=== PATIENT | female | born 1960 | race Caucasian/White ===

== ENCOUNTER 2020-02-15 10:53 | Emergency (ER) | payer OTHER, SELFPAY ==
[2020-02-15 11:00] VITALS: BP 170/85; PULSE 80; RESP 16; TEMP 36.5; O2SAT 98
--- NOTE | 2020-02-15 11:15 | DI.RAD_ITS ---
EXAM: XR SHOULDER LT COMPLETE 2+V CLINICAL HISTORY: fall/injury TECHNIQUE: COMPARISON: No exams were available for comparison FINDINGS: Five views were obtained. There is question of cortical deformity of the humeral head anteriorly par ticularly seen on the axillary view. Additionally, there is a question of a small bony fragment vers us calcification associated with the anterior inferior humeral head. Glenoid is unremarkable as visualized. Rotator cuff calcification noted superiorly. IMPRESSION: Suspect anterior humeral head fracture. Please see accompanying CT report.
--- NOTE | 2020-02-15 11:45 | DI.CT_ITS ---
EXAM: CT UPPER EXTREMITY LT WO CLINICAL HISTORY: injury, question humeral head fx on x ray TECHNIQUE: COMPARISON: No exams were available for comparison FINDINGS: CT examination of the left shoulder was performed utilizing multi slice acquisition multiplanar recon struction. There is fracture of the anterior inferior aspect of the humeral head with 2 displaced fr acture fragments, these measure about 17 x 8 millimeters and 15 x 7 millimeters in diameter respectiv jordan, maximal displacement is about 2 cm for the more inferiorly located fracture fragment. Remainder of the humeral head appears intact. No scapular fracture seen. Superior rotator cuff calcification noted as seen on plain films. IMPRESSION: Moderately displaced fracture of anterior inferior aspect of humeral head as described above. No gle noid involvement.
--- NOTE | 2020-02-15 11:53 | W.ED.GENAD ---
Discharge Plan Disposition Patient Disposition: HOME Condition: Stable Discharge Details Chief Complaint: Orthopedic Clinical Impression: Fracture of head of humerus Primary Care Provider: Lindsay Pollack ED Provider: Lucian Lam Home Meds and New Rx's Prescriptions: No Action omeprazole 20 mg Capsule,Delayed Release(Dr/Ec) 20 mg PO DAILY RF: 0 Discharge Instructions Instructions: Shoulder Pain (ED) Additional Instructions: Wear sling until reevaluation with orthopedics. [id number] Tylenol and/or Motrin as directed for discomfort. Cool compresses every 2 hours for 20 minutes. Please watch for new or worsening symptoms and return to the ER for any concerns. I recommend getting Dr. Dior's office a call tomorrow for prompt outpatient reevaluation the next 5-7 days. Referrals: Mohit Dior MD [ [facility] STAFF PHYSICIAN] - Medical Decision Making 59-year-old female otherwise healthy presents with left shoulder discomfort status post mechanical fall. She appears well, nontoxic. Neuro, vascular, tendon intact. Discussed analgesia, patient declines any at this time. Will obtain x-ray and reassess Discussed left shoulder x-ray with radiology, question of anterior fracture, recommend CT CT imaging obtained of left shoulder without contrast. Moderately displaced anterior-inferior humeral head fracture. Discussed CT and x-ray findings with patient. Sling applied. Patient understands the importance of orthopedic follow-up and she was placed on the orthopedic follow-up list. Patient does not want any pain medication upon discharge or prescription. She appears well, nontoxic, neuro, vascular, tendon intact. No additional questions or concerns upon discharge. Medical Records Medical records reviewed: Yes I reviewed the patient's medical records. Imaging Data Radiologic Study: Attestation: I personally reviewed and interpreted this imaging study as follows: Imaging: X-Ray My impression: Question anterior humeral head fracture, discussed with radiology. Recommend CT Radiologic Study #2: Attestation: I personally reviewed and interpreted this imaging study as follows: Imaging: CT Scan Radiologist's impression: There is a moderately displaced anterior-inferior humeral head fracture, CT no contrast left shoulder HPI General Mode of arrival: ambulatory. Date/Time Provider Initiated Documentation: 02/15/20 11:10. Limitations to Documentation: no limitations. Information obtained by: patient. HPI Narrative: This is a 59-year-old female who is right-hand dominant, presenting with a left shoulder injury that occurred at work around 930 this morning. She reports a mechanical trip and fall, her left arm was part way out breaking her fall. She reports no other injury, striking her head, numbness, tingling, weakness. She is not anticoagulated. She reports the pain is moderate at rest, severe with attempting to move her shoulder. She reports that she did dislocate 1 of her shoulders nearly 40 years ago but she cannot recall which shoulder that would have been. She denies any injuries symptoms prior to the fall Related Data Home Medications Medication Instructions Recorded Confirmed omeprazole 20 mg PO DAILY 02/15/20 02/15/20 Allergies Allergy/AdvReac Type Severity Reaction Status Date / Time No Known Allergies Allergy Unverified 02/15/20 11:04 General Stated Complaint: Orthopedic NADINE: 4 Review of Systems Constitutional Constitutional: Denies headache(s) and Denies weakness ENT Ears, Nose, Mouth, and Throat: Denies headache(s) Cardiovascular Cardiovascular: Denies chest pain and Denies dyspnea Respiratory Respiratory: Denies cough and Denies dyspnea Gastrointestinal Gastrointestinal: Denies nausea and Denies vomiting Musculoskeletal Musculoskeletal: Denies numbness and Denies tingling Integumentary/Breasts Skin/Breast: Denies rash Neurologic Neurologic: Denies headache(s), Denies numbness, Denies tingling and Denies weakness [facility] Medical History Dysphagia (Acute) GERD (gastroesophageal reflux disease) (Chronic) Hyperlipidemia (Acute) Lesion of skin of nose (Acute) Obesity (Chronic) Stress incontinence (Acute) Social History Smoking/Tobacco Use Status: Never Alcohol Intake: never Substance use type: does not use Exam Const General: cooperative, healthy appearing, comfortable and no acute distress Orientation: alert, awake and oriented x3 HENMT Head: normal to inspection, normocephalic and atraumatic General nose exam: external nose normal Face and sinus: normal facial exam Mouth: moist mucous membranes Eyes Conjunctivae: conjunctivae normal Neck Neck: normal visual inspection, full ROM, trachea midline, supple and nontender Resp Effort & Inspection: normal respiratory effort and able to speak in complete sentences Auscultation: clear to auscultation bilaterally Cardio Rate: regular rate Rhythm: regular rhythm Back/Spine/Pelvis Back: No back tenderness Skin General skin exam: no rashes or lesions noted Neuro General: patient alert, patient awake, patient oriented x3, moves all extremities and no focal motor deficits Cognition: normal cognition Speech: speech normal Gait: normal gait Motor: muscle tone normal throughout Sensory Exam: no sensory deficits noted Extrem Left upper extremity: normal to inspection and shoulder/upper arm Details: inspection abnormal, tenderness Location: of the proximal humerus, axillary nerve sensory function normal and abnormal ROM Details: held in an abnormal fashion Details: in ADduction, pain with active ROM, pain with passive ROM and with range as follows (Decreased abduction, flexion, extension); ROM limited Psych Appearance: grossly normal Mental Status: mental status grossly normal Course Vital Signs Vital signs: Vital Signs Temperature 36.5 C 02/15/20 11:00 Pulse 80 02/15/20 11:00 Respiratory Rate 16 02/15/20 11:00 Blood Pressure 170/85 H 02/15/20 11:00 Pulse Oximetry 98 02/15/20 11:00 Temperature 36.5 C 02/15/20 11:00 Temperature Source Skin 02/15/20 11:00 Pulse 80 02/15/20 11:00 Respiratory Rate 16 02/15/20 11:00 Respiratory Effort Non-Labored 02/15/20 11:00 Blood Pressure 170/85 H 02/15/20 11:00 Blood Pressure Position Sitting 02/15/20 11:00 Pulse Oximetry 98 02/15/20 11:00 Oxygen Delivery Method Room Air 02/15/20 11:00 Oxygen Flow Rate 0 02/15/20 11:00 Pain Level 8 02/15/20 11:05
== END 2020-02-15 12:50 | disposition home or self-care (01) ==
LOC: ER 12:59
PROVIDERS: Emergency Provider Physician Assistant; PCP Nurse Practitioner Family
DX: S42.292A Other displaced fracture of upper end of left humerus, initial encounter for closed fracture (principal); W18.09XA Striking against other object with subsequent fall, initial encounter; Y99.0 Civilian activity done for income or pay
CPT/HCPCS: 23600; 99284; 73030; 73200; 99282; L3650

== ENCOUNTER 2020-03-10 00:54 | Outpatient (CLI) | payer OTHER, SELFPAY ==
--- NOTE | 2020-03-10 09:30 | DI.MRI_ITS ---
EXAM: MR UPPER JOINT LT WO CLINICAL HISTORY: Subscapularis avulsion fracture, rotator cuff tear,fx head of humerus,M75.102,S42. 293A TECHNIQUE: Multiplanar multisequence MRI was performed. COMPARISON: CT CT UPPER EXTREMITY LT WO from 02/15/[address] UPPER EXTREMITY LT WO from 02/15/2020 FINDINGS: MR examination of the shoulder was performed according to the usual protocol. The patient had acute fracture of the anterior humeral head in the subscapularis attachment region on February 14. Bones: There are moderate hypertrophic degenerative changes of the acromioclavicular joint with mild supraspinatus superior surface impingement. There is significant marrow edema of humeral head which extends anteriorly to posteriorly, there are avulsed fracture fragments of the humeral head anteriorly at the subscapularis attachment region, the se are poorly defined by MR criteria on the current examination as they are of intermediate signal in tensity. Comparison with CT of 02/15/2020 shows probable mild persistent displacement of fracture fr agments anteriorly, however a repeat CT would be more accurate in determining the exact location and orientation of the fracture fragments anteriorly. Rotator cuff: There is partial and full-thickness tearing of the subscapularis tendon, most prominent in the distal portion of the tendon. There is intact continuous tendon at the superior aspect of th e subscapularis. Additionally, inferior portions of the tendon appear to be attached to a presumed a nterior fracture fragment which probably remains partially healed at this time. Supraspinatus, infraspinatus, and teres minor tendons appear well maintained, no significant tearing. Mild tendinosis or bruising of supraspinatus noted over the superior convexity of the humeral head. Biceps tendon: Biceps tendon and anchor appear intact and normally located in the bicipital groove. Glenoid labrum: Glenoid labrum appears mildly effaced but with no discrete tear. IMPRESSION: Complex anterior injury with comminuted anterior humeral head fracture and associated subscapularis t ear. Significant portions of the subscapularis remain attached to humeral head. Additionally porti ons of sub scapularis remains attached to anterior humeral fracture fragments, probably unhealed at t his time. DATA REPOSITORY:
== END 2020-03-10 01:14 ==
PROVIDERS: PCP Nurse Practitioner Family; Visit Provider Orthopaedic Surgery
DX: M75.102 Unspecified rotator cuff tear or rupture of left shoulder, not specified as traumatic (principal); S42.262D Displaced fracture of lesser tuberosity of left humerus, subsequent encounter for fracture with routine healing; M19.012 Primary osteoarthritis, left shoulder
CPT/HCPCS: 73221

== ENCOUNTER 2020-03-15 08:58 | Outpatient (CLI) | payer BC, SELFPAY ==
[2020-03-16 19:09] LABS: COVID-19 RT-PCR UVMMC Result Negative (Negative)
== END 2020-03-15 09:18 ==
PROVIDERS: PCP Nurse Practitioner Family; Visit Provider Student in an Organized Health Care Education/Training Program
DX: Z11.59 Encounter for screening for other viral diseases (principal); Z01.818 Encounter for other preprocedural examination
CPT/HCPCS: U0003

== ENCOUNTER 2020-03-18 08:13 | Day surgery (SDC) | payer OTHER, SELFPAY ==
[2020-03-18] VITALS (7 sets, daily range): BP systolic 122–147; BP diastolic 67–85; PULSE 66–75; RESP 13–18; TEMP 36.2–36.5; O2SAT 95–100
[2020-03-18] MEDS: Lactated Ringers 1,000 ML 100 ML IV ×2 (09:00→15:07)
--- NOTE | 2020-03-18 10:12 | PDOC.DSDIS_ITS ---
Discharge Plan Disposition Patient Disposition: HOME Condition: Stable Discharge Details Reason For Visit: Left shoulder surgery Attending Provider: Felipe Townsend Primary Care Provider: Lindsay Pollack Home Meds and New Rx's Prescriptions: New naproxen 250 mg tablet 250 - 500 mg PO BID PRN (Reason: Moderate pain or swelling) Qty: 60 RF: 0 aspirin 81 mg tablet,delayed release (DR/EC) 81 mg PO DAILY 14 Days Qty: 14 RF: 0 oxycodone 5 mg tablet 5 - 10 mg PO Q4H PRN (Reason: moderate to severe pain) Qty: 22 RF: 0 Continued omeprazole 20 mg Capsule,Delayed Release(Dr/Ec) 20 mg PO DAILY RF: 0 Discontinued alprazolam 0.5 mg tablet 0.5 mg PO ONCE PRN (Reason: Claustrophobia) Qty: 2 RF: 0 Discharge Instructions Additional Instructions: Surgery: Shoulder arthroscopy with open rotator cuff repair and biceps tenodesis Activity: You should keep your arm at your side in a neutral position at all times except for physical therapy. Do not try to lift or raise your arm using your own muscles. You should use the sling whenever you are out of the house. You may have to adjust the abduction pillow or remove it for comfort. At home it is best to remove the sling and rest the arm on a pillow at your side or support the operative side with your other hand. You may allow the arm to dangle at your side. A physical therapy prescription will be provided separately today. Prescriptions: Aspirin 81 mg take 1 daily to prevent a blood clot for 2 weeks Naproxen 250 mg take 1-2 every 12 hours with a meal as needed for moderate pain Oxycodone 5 mg take 1-2 every 4-6 hours as needed for severe pain You may use [id number] Tylenol (acetaminophen) as needed for mild pain. These pain medications may be taken all at once or in different combinations as needed. Also, recommend Colace (docusate) as a stool softener as surgery and pain medicine cause constipation. Dressings: Leave dressing in place until follow up. Please keep clean and dry. Follow-up: 10-[address] Townsend Please call the office during business hours with any questions or concerns. Let us know right away if you develop any redness, drainage, fevers, chest pain, or trouble breathing. Do not drink alcohol or drive for at least 24 hours after anesthesia. Stand Alone Forms: Anes.Nerve Block Instructions, Brigitte Buckley ([facility]) Referrals: Felipe Townsend MD [ [facility] STAFF PHYSICIAN] - Discharge Orders Discharge Orders: Discharge Order (Routine); Ordered 03/18/20 Ordered By: Felipe Townsend DS: Diagnosis Discharge Diagnosis (1) Left rotator cuff tear: Status: Acute (2) Tendinitis of long head of biceps brachii of left shoulder: Status: Acute (3) Calcific tendonitis of left shoulder: Status: Acute (4) Fracture of head of humerus: Status: Inactive (5) Proximal humeral fracture: Status: Acute
--- NOTE | 2020-03-18 10:20 | ROE_ITS ---
Date of service: 03/18/20 Time of Service: 12:20 Operative Note Operative Note DATE OF PROCEDURE: 03/18/20 PRE-OP DIAGNOSIS: Left: 1. Rotator cuff tear: Subscapularis lesser tuberosity avulsion fracture 2. LHB tendinopathy 3. Calcific tendinitis: Supraspinatus POST-OP DIAGNOSIS: same PROCEDURE: Left: 1. Open rotator cuff repair, CPT# 80127. This involved repair of the subscapularis using anchors and sutures to reattach the rotator cuff avulsion fracture back to the footprint of the lesser tuberosity. 2. Open biceps tenodesis, CPT# 36191. This involved reattaching the long head of the biceps tendon to the proximal humerus in the supra-pectoral area of the bicipital groove at the correct tension. 3. Arthroscopic extensive debridement, CPT# 69387. This involved using arthroscopic hand instruments, power instruments, and radiofrequency instruments to release to release the long head of the biceps tendon, adhesions from the anterior capsule and MGHL to the subscapularis, and debride areas of synovitis, scar tissue, and prepare lesser tuberosity footprint the glenohumeral joint anteriorly 4. Subacromial decompression, CPT# 31245. This involved using arthroscopic power instruments and a radiofrequency wand to complete a bursectomy and debride soft tissue from the undersurface of the acromion. The assistant director of residence life was medically required in order to help assist in techniques abo ve, which require positioning the arm, holding the arthroscope, and manipulating 2 to 4 instruments and sutures at the same time. This cannot be done without the help of an experienced assistant director of residence life. SURGEON: Felipe Townsend COMPENSATION CONSULTING MANAGER: Kostas hCávez ANESTHESIA: GETA, regional and local ESTIMATED BLOOD LOSS: 200 PATHOLOGY: none sent COMPLICATIONS: None Patient was transported to: PACU Patient's condition: stable Implants: Arthrex: 4.75mm SwiveLocks x 2 and 5.5mm SwiveLock x 1 Indications: The patient was diagnosed with the above conditions and appropriately indicated for surgical intervention. Please see complete medical record for details. Findings: Exam under anesthesia: Full symmetrical range of motion without forcing external rotation. No instability. Glenohumeral joint: Moderate scarring about a retracted nearly full-thickness subscapularis avulsion fracture. Intact uppermost 10% subscapularis tendon. Long of the biceps injection inflammation. Intact supraspinatus infraspinatus. Intact glenoid humeral head cartilage surfaces. Significantly soft bone about the lesser tuberosity fracture bed unable to support suture anchor fixation. Subacromial space: Moderate bursitis. Minimal subacromial bone spur. No bursal rotator cuff tear. No visible calcific deposition. Procedure Description: In the operating room, general anesthesia was induced. Bilateral shoulders were examined. The patient was positioned in the beachchair position. All bony prominences were well-padded. Preoperative antibiotics were administered. The shoulder was prepped and draped in the usual sterile fashion. The correct patient, procedure, and side of the procedure were all verified prior to incision. Starting through the posterior portal a standard complete diagnostic arthroscopy was performed of the glenohumeral joint including inspection of the long head of the biceps, anterior and superior labrum, subscapularis tendon, supraspinatus and infraspinatus tendons, and axillary recess. The glenoid and humeral head cartilage as well as the posterior labrum were inspected as well. Significant findings and interventions noted above. The subscapularis was nearly completely avulsed from the lesser tuberosity and retracted medially. The uppermost border of the subscapularis remained intact near the biceps sling. The avulsion fracture contained a significant approximately 2 cm x 2 cm joint fracture fragments. It was retracted to the level of the glenoid. The 70 degree arthroscope was brought in posteriorly. A slightly lower anterior portal was established under direct visualization using a spinal needle for localization to access the inferior and middle lesser tuberosity fracture bed. A rigid cannula was inserted. A more anterior superior lateral anterior portal was then established under direct visualization with a spinal needle localizing to the superior margin of the subscapularis. Rigid cannula was also inserted here. The biceps tendon was provisionally prepared for arthroscopic tenodesis using the Loop N Tack method with a SutureTape FiberLink cinched around and through the tendon. The biceps was tenotomized from the labrum and suture brought out an accessory stab portal superior anterior laterally. The lesser tuberosity footprint was prepared using hand and power instruments for bone to bone healing removing scar tissue. The avulsion fracture and retracted tendon was freed anteriorly and posteriorly until adequate mobility. A rigid cannula was inserted anteriorly. The arm was adjusted between flexion and internal rotation and neutral using a 2 anterior portal technique, a suture lasso was used to pass a fiber tape through the inferior subscapularis medial to the bone avulsion fragment. This stitch was used for traction and passing of FiberLink more centrally in the subscapularis tendon relative to the avulsion fragment. The scorpion suture passer was used to place 2 additional fiber link sutures in the lateral and superior aspects of the scapularis. These were used as traction to help reduce the tendon avulsion fracture over its fracture bed. The tap was used to localize placement of the first 4.75 mm swivel lock containing the inferior most fiber tape and link working inferiorly and laterally in the lesser tuberosity fracture footprint. The punch went quite easily into the bone with minimal effort. The suture anchor was placed and then tested and easily pulled out with minimal resistance. The punch was used to confirm appropriate trajectory and depth. The anchor was brought back in and simply fell into the hole. Decision was made to switch attempted 5.5 mm swivel lock in its place. This was appropriately placed, sutures tensioned, seemed to have better fixation, and tested provisionally held in place. The inferior most avulsion fracture had been reduced. Due to the tenuous soft bone the decision was made to proceed with an additional anchor more superiorly as opposed to 3 initially planned medial row anchors. The punch was used to localize placement for an anchor superiorly and laterally in the fracture avulsion bed. This punch had some bony resistance so decision was made to try another 4.75 mm swivel lock, which was loaded with the superior FiberTape and 2 fiber links as well as the sutures for the biceps tenodesis and brought down with the sutures appropriately tension. Given the tenuous fixation of the previous screw, I tested this screw with the inner sutures. It did not pull out but it did wiggle slightly. I proceeded to inspect the repair through full internal and external rotation. I did not like what looked to be movement of this suture anchor in its socket with stress. Using graspers I tested it bone fixation and deemed to be inadequate. I was able to pull the screw back out of the socket. After carefully removing the entire SwiveLock and eyelet from the shoulder I decided to test the previously placed more inferior anchor. Viewing through the lower anterior portal with a 30 degree scope I watched this suture anchor again taken the arm through internal/external rotation. I could see similar motion of the screw suture anchor in its socket, which did not feel was adequate fixation strength. The decision was made to convert to an open subscapularis repair through a deltopectoral approach, which had been discussed at length with the patient beforehand as a likely possibility given the injury pattern. Prior to completing the arthroscopy portion of the case, starting through the posterior portal, the arthroscope was directed into the subacromial space. Superior anterolateral portal was redirected in the subacromial space. A combination of power instruments and a radiofrequency ablator were used to debride bursitis anteriorly, posteriorly, and laterally as well as expose a relatively smooth undersurface of the acromion. The coracoacromial ligament was not released. The small calcific deposition of the supraspinatus was not identified. Decision was made to omit any debridement or opening of the supraspinatus to debride this lesion as it had been only mildly symptomatic and unrelated to her acute injury that brought her to surgery today. The shoulder w as drained of arthroscopic fluid. Previously placed rotator cuff repair sutures, the biceps tenodesis suture, and that for suture anchor were maintained in place for later localization. The shortened version of the standard deltopectoral interval was used to approach the anterior shoulder extending from the superior anterior lateral portal distally down towards the central arm. Combination of sharp and blunt dissection was used to identify the cephalic vein centrally in the incision. It seemed to want to go laterally so in this case it was freed up from its medial attachments and pectoralis muscle and carefully retracted laterally with the deltoid. Blunt dissection and abduction was used to relax the deltoid muscle in place a brown retractor. Kolbel self retractor was placed more centrally in the incision. Scar tissue was removed using a rondure. The lesser tuberosity fracture bed was easily identified and the margins debrided of fibrous tissue. The remaining suture anchor was easily removed using a rondure indicating inadequate fixation. The sutures were maintained for traction on the inferior fracture fragment. The remainder of the sutures were brought through and out the open incision to help identify anatomy. The rotator interval and long head of the biceps tendon was identified. The biceps tendon sheath was opened and biceps tendon brought out the wound at the superior margin of the pectoralis major tendon. It was reprepped using a suture tape and amputating excess so as to have the appropriate tension when fixated at this location. Blunt dissection was used to confirm appropriate mobility of a now more clearly visible large lesser tuberosity avulsion subscapularis fracture. The upper margin of the subscapularis was still confirmed to be attached to the superior most lesser tuberosity. A suture passer was used to place a fiber tape in a horizontal mattress fashion medial to the avulsion fragment. A free needle was used to pass a suture tape FiberLink through the bone fragment centrally relative to the horizontal mattress tape stitch. These were tagged and this process was repeated more centrally. The previously arthroscopically placed FiberLink's most superiorly were used to main traction on the superior margin of the injury, the FiberTape removed and then replaced in a similar horizontal mattress fashion in the stitches snapped together. The initially planned double row transosseous equivalent repair did not seem possible at this time. The bone fracture bed contained soft bone as evidenced by prior soft tissue anchor pullout. The holes from these anchors were soft and enlarged. Instead, a single row repair draping the ensnared subscapularis avulsion fragments over the lesser tuberosity fracture bed with fixation in the typically good bone and the bicipital groove was decided to be done. Starting inferiorly the punch had good bone quality and the inferior tapes and link as well as biceps tendon suture tape were brought down -the biceps tendon and rotator cuff sutures and brought through an opposite direction to the eyelets they could be appropriately tensioned separately -and a 4.75 mm swivel lock anchor was well fixated. FiberWire preloaded on the suture anchor was brought about the medial and lateral sides of long head of the biceps tendon and a knot tied compressing the tendon down over the suture anchor and bone for optimal healing. This suture anchor repair of the biceps and subscapularis was tested and found to be strong. This was repeated for the middle tape and link to another 4.5 mm swivel lock placed at the appropriate level in the bicipital groove. The punch had excellent bone resistance and this anchor had good purchase. The superiormost sutures were provisionally brought over laterally. The bone in this area at the top of the bicipital groove did not have nearly the same resistance to the punch but it was thought to be enough. The superiormost tape as well as the arthroscopically placed 2 Links were brought through the eyelet appropriately tensioned and the screw driven into the hole. The fixation was tested and found to be borderline. The screw did not pull out but was not nearly as strong as the previous 2. When the arm was brought through internal to full external rotation it seemed to exhibit some micromotion. It was unscrewed partially and then removed with it eyelet using a rondure. The punch was used to confirm correct trajectory and depth, and a final 5.5 mm swivel lock was inserted containing the same sutures tensioned in its place. The suture anchor had greatly improved purchase. Suture anchor as well as the overall repair was inspected tested and the arm brought once again through full external rotation demonstrating no restricted motion due to the repair and secure fixation of the tendon and anchor to bone. There was excellent reduction of the entire left scapularis avulsion to the lesser tuberosity. The wound was copiously irrigated normal saline. Considering patient obesity and the duration of the case, 1 g of vancomycin powder was distributed deeply about the wound. The deltopectoral interval was allowed to close itself. The cephalic vein was inspected and remained intact. Subcutaneous tissue was closed using 2-0 Monocryl in a buried interrupted fashion. The skin was closed using 3-0 Monocryl in a running subcuticular fashion. The portal sites were closed using 3-0 Monocryl in a buried portal fashion. The anterior incision, stab portal, and other anterior portal were covered in skin glue. The posterior portal was covered with Steri-Strips over Mastisol followed by Xeroform, dry 4 x 4 gauze, and Tegaderm. The anterior incisions were covered with a silver impregnated Band-Aid secured with Mastisol about the skin folds towards the armpit. The operative extremity was placed into a sling for immobilization. The patient awoke from anesthesia without complication and was transferred to the recovery room in a stable condition.
[2020-03-18] MEDS: ceFAZolin 3,000 MG in Normal Saline 100 ML 200 MG IVPB (10:36)
[2020-03-18] MEDS: EPINEPHrine 30 MG/30 ML VIAL (11:49)
[2020-03-18] MEDS: Tranexamic Acid 1,000 MG/10 ML VIAL 1000 MG (13:58)
[2020-03-18] MEDS: Ketorolac 15 MG/ML VIAL (15:46)
[2020-03-18] MEDS: oxyCODONE 5 MG TAB PO (16:01)
== END 2020-03-18 17:25 | disposition home or self-care (01) ==
PROVIDERS: PCP Nurse Practitioner Family; Visit Provider Student in an Organized Health Care Education/Training Program
PROC: (CPT 29827; principal; 2020-03-18 10:00)
DX: S42.262A Displaced fracture of lesser tuberosity of left humerus, initial encounter for closed fracture (principal); M75.22 Bicipital tendinitis, left shoulder; S46.012A Strain of muscle(s) and tendon(s) of the rotator cuff of left shoulder, initial encounter; M75.32 Calcific tendinitis of left shoulder; M75.52 Bursitis of left shoulder; W18.30XA Fall on same level, unspecified, initial encounter; G89.18 Other acute postprocedural pain; Z53.33 Arthroscopic surgical procedure converted to open procedure; E66.9 Obesity, unspecified; Z68.41 Body mass index [BMI] 40.0-44.9, adult
CPT/HCPCS: 23430; 23410; 29826; 29823; C1776; 76942; L3670; J0690; J1100; J1885; J2001; J2370; J2405

== ENCOUNTER 2020-04-12 19:14 | Outpatient (REF) | payer BC, SELFPAY ==
[2020-04-12 22:09] LABS: Anion Gap 9.5 mmol/L (3-11); BUN 13 mg/dL (7-18); CO2 27.5 mmol/L (21.0-32.0); CREATININE 0.75 mg/dL (0.55-1.02); Calcium 10.8 mg/dL (8.5-10.1); Calculated LDL 164 mg/dL (<100); Chloride 103 mmol/L (98-107); Cholesterol 242 mg/dL (<200); Glucose 96 mg/dL (74-106); HDL Cholesterol 41 mg/dL (40-60); Potassium 4.1 mmol/L (3.5-5.1); Sodium 140 mmol/L (136-145); Triglyceride 187 mg/dL (<150); Vitamin B12 238 pg/mL (193-986)
[2020-04-14 10:41] LABS: Hepatitis C Ab w Rflx HCV PCR Negative (Negative)
== END 2020-04-12 19:34 ==
LOC: NCHCN 19:14
PROVIDERS: PCP Nurse Practitioner Family; Visit Provider Nurse Practitioner Family
DX: Z00.00 Encounter for general adult medical examination without abnormal findings (principal); E78.5 Hyperlipidemia, unspecified; K21.9 Gastro-esophageal reflux disease without esophagitis; R06.83 Snoring; Z11.59 Encounter for screening for other viral diseases; L98.9 Disorder of the skin and subcutaneous tissue, unspecified; R13.10 Dysphagia, unspecified
CPT/HCPCS: 80048; 80061; 86803; 82607

== ENCOUNTER 2020-07-15 04:05 | Outpatient (CLI) | payer BC, SELFPAY ==
--- NOTE | 2020-07-15 | DI.MAMMO_ITS ---
EXAM: MG MAMMO SCREENING CLINICAL HISTORY: SCREENING,Z12.39 TECHNIQUE: Bilateral full field digital CC and MLO mammographic images were obtained with 3D tomosyn thesis and utilizing computer aided detection (CAD). COMPARISON: Available for comparison. FINDINGS: Masses/Architectural Distortion: None seen. Microcalcifications: No suspicious pleomorphic-type are seen. Skin Thickening/Nipple Retraction: None. IMPRESSION: 1. No significant interval change with no specific features of malignancy noted. 2. Unless there is more urgent need, screening mammography is recommended, as per [employer] guidelines. BI-RADS Category 1 - Negative Breast Density - Category B - Scattered areas of fibroglandular density A negative radiographic report should not delay biopsy if a dominant or clinically suspicious mass is present. Up to ten percent of cancers are not identified on mammography. A negative report may reinforce clinical impression. Adenosis and dense breasts may obscure an underlying neoplasm. False positive reports average 6 to 10%. Patient will receive a letter notifying them of these results.
== END 2020-07-15 04:25 ==
PROVIDERS: PCP Nurse Practitioner Family; Visit Provider Nurse Practitioner Family
DX: Z12.31 Encounter for screening mammogram for malignant neoplasm of breast (principal)
CPT/HCPCS: 77063; 77067

== ENCOUNTER 2020-07-20 02:19 | Outpatient (CLI) | payer BC, SELFPAY ==
[2020-07-20 18:36] LABS: ALT 30 U/L (14-59); AST 14 U/L (15-37); Albumin 3.8 g/dL (3.4-5.0); Alkaline Phosphatase 113 U/L (46-116); Bilirubin, Direct 0.09 mg/dL (0.00-0.20); Bilirubin, Total 0.5 mg/dL (0.2-1.0); FREE T4 0.96 ng/dL (0.76-1.46); TSH 1.31 uIU/mL (0.36-3.74)
[2020-07-21 04:31] LABS: Vitamin D 25 Total 27.5 ng/ml (30-100)
[2020-07-21 17:06] LABS: T3,Free 3.6 pg/mL (2.8-5.3)
[2020-07-22 08:44] LABS: Parathyroid Hormone,Intact 88 pg/mL (19-88)
== END 2020-07-20 02:39 ==
PROVIDERS: PCP Nurse Practitioner Family; Visit Provider Nurse Practitioner Family
DX: E83.52 Hypercalcemia (principal)
CPT/HCPCS: 36415; 80076; 82306; 82330; 83970; 84439; 84443; 84481

== ENCOUNTER 2021-03-23 11:39 | Outpatient (REF) | payer BC, SELFPAY | END 2021-03-23 11:40 | disposition home or self-care (01) | LOC: NCHCN 11:39 | PROVIDERS: PCP Nurse Practitioner Family; Visit Provider Nurse Practitioner Family | DX: L29.8 Other pruritus (principal) | CPT/HCPCS: 87480; 87510; 87660 ==

== ENCOUNTER 2021-06-23 14:46 | Outpatient (REF) | payer SELFPAY ==
[2021-06-24 16:18] LABS: COVID-19 RT-PCR UVMMC Result Negative (Negative)
== END 2021-06-23 14:47 | disposition home or self-care (01) ==
LOC: NCHCN 14:46
PROVIDERS: PCP Nurse Practitioner Family; Visit Provider Nurse Practitioner Family
DX: Z20.822 Contact with and (suspected) exposure to COVID-19 (principal)
CPT/HCPCS: U0003